=== PATIENT | male | born 1945 ===

== ENCOUNTER 2018-01-13 00:22 | Outpatient (CLI) | payer MEDICARE | END 2018-01-13 23:59 | disposition home or self-care (01) | LOC: DIABETIC 00:22 | PROVIDERS: ATTEND Specialist | DX: E10.9 Type 1 diabetes mellitus without complications (principal); Z79.82 Long term (current) use of aspirin; Z79.4 Long term (current) use of insulin | CPT/HCPCS: G0108 ==

== ENCOUNTER 2018-07-15 01:25 | Outpatient (CLI) | payer MEDICARE | END 2018-07-15 23:59 | disposition home or self-care (01) | LOC: DIABETIC 01:25 | PROVIDERS: ATTEND Specialist | DX: Z71.3 Dietary counseling and surveillance (principal); E10.9 Type 1 diabetes mellitus without complications; Z79.4 Long term (current) use of insulin; Z96.41 Presence of insulin pump (external) (internal) | CPT/HCPCS: G0108 ==

== ENCOUNTER 2018-08-18 02:25 | Outpatient (CLI) | payer MEDICARE | END 2018-08-18 23:59 | disposition home or self-care (01) | LOC: DIABETIC 02:25 | PROVIDERS: ATTEND Specialist | DX: Z71.3 Dietary counseling and surveillance (principal); E11.9 Type 2 diabetes mellitus without complications | CPT/HCPCS: G0108 ==

== ENCOUNTER 2018-11-17 04:35 | Outpatient (CLI) | payer MEDICARE | END 2018-11-17 23:59 | disposition home or self-care (01) | LOC: DIABETIC 04:35 | PROVIDERS: ATTEND Specialist | DX: E10.9 Type 1 diabetes mellitus without complications (principal); Z79.4 Long term (current) use of insulin; Z79.899 Other long term (current) drug therapy | CPT/HCPCS: G0108 ==

== ENCOUNTER 2019-03-09 04:24 | Outpatient (CLI) | payer MEDICARE | END 2019-03-09 23:59 | disposition home or self-care (01) | LOC: DIABETIC 04:24 | PROVIDERS: ATTEND Specialist | DX: E10.9 Type 1 diabetes mellitus without complications (principal); Z79.4 Long term (current) use of insulin; Z79.82 Long term (current) use of aspirin; Z79.899 Other long term (current) drug therapy | CPT/HCPCS: G0108 ==